=== PATIENT | female | born 1965 | race Caucasian/White ===

== ENCOUNTER 2022-09-05 10:44 | Emergency (ER) | payer BC ==
[2022-09-05] MEDS ORDERED: ONDANSETRON 4 MG/2 ML VIAL IVP STA (11:04)
[2022-09-05] MEDS ORDERED: KETOROLAC 30 MG/ML VIAL IVP STA (11:04)
[2022-09-05] MEDS ORDERED: SODIUM CHLORIDE 0.9% 1,000 ML IV STA (11:04)
[2022-09-05] MEDS ORDERED: KETOROLAC 15 MG/ML VIAL IVP STA (11:11)
[2022-09-05 11:25] LABS: BASOPHILS % (AUTO) 0.2 %; EOSINOPHILS % (AUTO) 0.1 %; HCT - HEMATOCRIT 41.5 % (37.0-47.0); HGB - HEMOGLOBIN 13.9 g/dL (12.0-16.0); LYMPHOCYTES # (AUTO) 0.2 10^3/uL (1.5-3.5); LYMPHOCYTES % (AUTO) 1.2 %; MEAN CORPUSCULAR HGB CONC 33.5 g/dL (32.0-36.0); MEAN CORPUSCULAR VOLUME 92.4 fL (81.0-99.0); MEAN PLATELET VOLUME 9.6 fL (7.9-10.8); MONOCYTES # (AUTO) 0.5 10^3/uL (0.0-1.0); MONOCYTES % (AUTO) 2.9 %; PLT - PLATELET COUNT 266 10^3/uL (130-450); RED BLOOD COUNT 4.49 10^6/uL (4.20-5.40); RED CELL DISTRIBUTION WIDTH 13.5 % (12.0-15.0); WHITE BLOOD COUNT 16.8 x10^3/uL (4.8-10.8)
[2022-09-05 11:38] LABS: ALBUMIN 4.2 g/dL (3.2-5.5); ALBUMIN/GLOBULIN RATIO 1.4 (1.0-2.2); BILIRUBIN,TOTAL 1.1 mg/dL (0.2-1.0); CALCIUM 8.7 mg/dL (8.5-10.3); CREATININE 0.7 mg/dL (0.4-1.0); POTASSIUM 2.7 mmol/L (3.5-5.0); TOTAL PROTEIN 7.3 g/dL (6.7-8.2)
[2022-09-05] MEDS ORDERED: ACETAMINOPHEN 325 MG TABLET PO STA (11:48)
[2022-09-05] MEDS ORDERED: POTASSIUM CHLORIDE 20 MEQ TABLET PO STA (12:19)
--- NOTE | 2022-09-05 12:24 | ED Physician Documentation ---
History of Present Illness - Stated complaint Stated Complaint: NAUSEA/CHILLS/VOMITING - Chief complaint Chief Complaint: Fever - History obtained from History obtained from: Patient - Additonal information Additional information: The patient comes to the emergency department chief complaint of not feeling well with fever and chills body aches over the last 24 hours. She was just seen a couple of days ago to have a cystoscopy on the back of her right shoulder I&D'd. Her primary doctor is the one who has done this and has had to do it once before couple of months ago. The patient states that the cyst was packed and she is supposed to be referred to dermatology to have the cyst removed. The patient was not placed on any antibiotics at the time and was feeling okay when the I&D took place. However, the patient began to feel unwell yesterday and ended up going to urgent care clinic, where she was placed on Keflex. She states she is taken a few doses of this already, though she has not taken her second dose for today. She states that she has noticed some increased tenderness around the area of the I&D, and her significant other feels that there is some redness around the site which has spread a bit. The patient denies any cough or shortness of breath. She has been nauseated and vomited once but has not really noted this is a prominent feature of her symptoms. The patient denies any sore throat. No dysuria. No other complaints at this time. Review of Systems Constitutional: reports: Fever, Chills, Myalgias Eyes: reports: Reviewed and negative Ears: reports: Reviewed and negative Nose: reports: Reviewed and negative Throat: reports: Reviewed and negative Cardiac: reports: Reviewed and negative Respiratory: reports: Reviewed and negative GI: reports: Reviewed and negative : reports: Reviewed and negative Skin: reports: Other Musculoskeletal: reports: Reviewed and negative Neurologic: reports: Reviewed and negative Psychiatric: reports: Reviewed and negative Endocrine: reports: Reviewed and negative Immunocompromised: reports: Reviewed and negative PD PAST MEDICAL HISTORY - Past Medical History Past Medical History: Yes Cardiovascular: Hypertension Respiratory: Asthma Endocrine/Autoimmune: None GI: None PHARMACY MESSENGER: None : None Psych: None Musculoskeletal: None Derm: None - Past Surgical History Past Surgical History: Yes Ortho: Shoulder arthroplasty - Present Medications Home Medications: Ambulatory Orders Medication Instructions Recorded Confirmed Ondansetron Odt [Zofran] 4 mg TL Q6H PRN #10 tablet 09/05/22 Sulfamethox/Trimeth 800/160 1 each PO BID #14 tablet 09/05/22 [Bactrim Ds 800/160] - Allergies Allergies/Adverse Reactions: Allergies Allergy/AdvReac Type Severity Reaction Status Date / Time lisinopril Allergy Unknown Verified 09/05/22 11:02 - Social History Does the pt smoke?: No Smoking Status: Never smoker - POLST Patient has POLST: No PD ED PE NORMAL - Vitals Vital signs reviewed: Yes - General General: Alert and oriented X 3, No acute distress, Well developed/nourished, Other (The patient appears mildly uncomfortable, but nontoxic.) - HEENT HEENT: Atraumatic, PERRL, EOMI, Moist mucous membranes - Neck Neck: Supple, no meningeal sign - Cardiac Cardiac: RRR, No murmur, Strong equal pulses - Respiratory Respiratory: No respiratory distress, Clear bilaterally - Abdomen Abdomen: Soft, Non tender, Non distended - Derm Derm: Warm and dry, Other - Extremities Extremities: No deformity - Neuro Neuro: Alert and oriented X 3 - Psych Psych: Normal mood, Normal affect PD ED PE EXPANDED - Free text exam Free text exam: 6 mm I&D site posterior right shoulder with packing in place. A single drop of seropurulent fluid is expressible from the wound. No fluctuance or any induration beyond the area immediately surrounding the incision site. 8 cm radius of erythema, mild in intensity, is noted around the incision site. Tenderness associated with erythematous area. Mild edema of same area. Results - Vitals Vitals: Oxygen O2 Source Room air - Labs Labs: Microbiology 09/05/22 11:10 Blood Culture - Preliminary Blood - Left Arm NO GROWTH AFTER 2 DAYS 09/05/22 11:10 Blood Culture - Preliminary Blood - Right Arm NO GROWTH AFTER 2 DAYS Laboratory Tests 09/05/22 09/05/22 09/05/22 11:10 11:10 11:10 WBC 16.8 H RBC 4.49 Hgb 13.9 Hct 41.5 MCV 92.4 MCH 31.0 MCHC 33.5 RDW 13.5 Plt Count 266 MPV 9.6 Neut # (Auto) 16.0 H Lymph # (Auto) 0.2 L Churchill # (Auto) 0.5 Eos # (Auto) 0.0 Baso # (Auto) 0.0 Absolute Nucleated RBC 0.00 Nucleated RBC % 0.0 Sodium 132 L Potassium 2.7 L Chloride 96 L Carbon Dioxide 23 Anion Gap 13.0 BUN 15 Creatinine 0.7 Estimated GFR (MDRD) 87 L Glucose 139 H Lactic Acid < 0.3 L Calcium 8.7 Total Bilirubin 1.1 H AST 58 H ALT 51 Alkaline Phosphatase 60 Total Protein 7.3 Albumin 4.2 Globulin 3.1 Albumin/Globulin Ratio 1.4 Lipase 25 Nasal Adenovirus (PCR) Nasal B. parapertussis DNA (PCR) Nasal Coronavir 229E PCR Nasal Coronavir HKU1 PCR Nasal Coronavir NL63 PCR Nasal Coronavir OC43 PCR Nasal Enterovir/Rhinovir PCR Nasal Influenza B PCR Nasal Influenza A PCR Nasal Parainfluen 1 PCR Nasal Parainfluen 2 PCR Nasal Parainfluen 3 PCR Nasal Parainfluen 4 PCR Nasal RSV (PCR) Nasal B.pertussis DNA PCR Nasal C.pneumoniae (PCR) Miki Human Metapneumo PCR Nasal M.pneumoniae (PCR) Nasal SARS-CoV-2 (PCR) 09/05/22 11:20 WBC RBC Hgb Hct MCV MCH MCHC RDW Plt Count MPV Neut # (Auto) Lymph # (Auto) Churchill # (Auto) Eos # (Auto) Baso # (Auto) Absolute Nucleated RBC Nucleated RBC % Sodium Potassium Chloride Carbon Dioxide Anion Gap BUN Creatinine Estimated GFR (MDRD) Glucose Lactic Acid Calcium Total Bilirubin AST ALT Alkaline Phosphatase Total Protein Albumin Globulin Albumin/Globulin Ratio Lipase Nasal Adenovirus (PCR) NOT DETECTED Nasal B. parapertussis DNA (PCR) NOT DETECTED Nasal Coronavir 229E PCR NOT DETECTED Nasal Coronavir HKU1 PCR NOT DETECTED Nasal Coronavir NL63 PCR NOT DETECTED Nasal Coronavir OC43 PCR NOT DETECTED Nasal Enterovir/Rhinovir PCR NOT DETECTED Nasal Influenza B PCR NOT DETECTED Nasal Influenza A PCR NOT DETECTED Nasal Parainfluen 1 PCR NOT DETECTED Nasal Parainfluen 2 PCR NOT DETECTED Nasal Parainfluen 3 PCR NOT DETECTED Nasal Parainfluen 4 PCR NOT DETECTED Nasal RSV (PCR) NOT DETECTED Nasal B.pertussis DNA PCR NOT DETECTED Nasal C.pneumoniae (PCR) NOT DETECTED Miki Human Metapneumo PCR NOT DETECTED Nasal M.pneumoniae (PCR) NOT DETECTED Nasal SARS-CoV-2 (PCR) NOT DETECTED PD Medical Decision Making - ED course Complexity details: reviewed results, re-evaluated patient, considered differential, d/w patient ED course: The patient had a significant fever in the emergency department, with appropriate tachycardia for the fever, but had a normal blood pressure. Overall, she appeared nontoxic. She did appear to have a cellulitis associated with her I&D site, and I reviewed her records and found that she had been placed on Keflex for this. Laboratory studies were ordered and reviewed by me, as follows: CBC showed a white blood cell count of 16.8. ER abdominal panel with mild hyponatremia 132 and moderate hypokalemia 2.7. The patient was given a dose of K-Dur for this. Blood cultures were ordered by me and are pending at this time. The patient was given a liter of 0.9 normal saline as well as IV doses of Zofran and Toradol and oral dose of Tylenol, which the patient did tolerate. I had ordered a respiratory PCR to see if perhaps patient Had a viral illness to explain what seemed to be more severe systemic illness than I would expect from the relatively mild cellulitis that the patient seemed to have. However, the PCR was negative. I discussed with the patient that she certainly could have some other viral illness on top of a mild cellulitis, but since I am not sure the patient seems to be mounting a significant systemic response, I will go ahead and give her a dose of IV vancomycin here. This was done. The patient reported feeling much better on reevaluation, and her fever had come down. I discussed with her that I will add Bactrim to the Keflex she is already taking and that she should take the entire course of both. We discussed having a very low threshold for return to the emergency department, should she begin to feel worse. I have marked the edges Of her cellulitis. Departure - Departure Disposition: 01 Home, Self Care Clinical Impression: Cellulitis Qualifiers: Site of cellulitis: trunk Site of cellulitis of trunk: back Qualified Code(s): L03.312 - Cellulitis of back [any part except buttock] Condition: Stable Instructions: ED Infec Skin Cellulitis Prescriptions: Sulfamethox/Trimeth 800/160 [Bactrim Ds 800/160] 1 each PO BID #14 tablet Ondansetron Odt [Zofran] 4 mg TL Q6H PRN #10 tablet PRN Reason: Nausea / Vomiting Comments: Your laboratory studies show a moderately elevated white blood cell count, which is not surprising, given your fever and infection. Your lactic acid, and the lab we look at to assess for potential sepsis, is normal. Additionally, your heart rate has normalized with bringing your fever down, and your blood pressure has remained normal throughout your stay in the emergency department. Your viral panel is negative. You do appear to have some cellulitis, or skin infections, surrounding the incision and drainage site. The redness is not very deep, but given the tenderness and mild swelling associated with it, it certainly needs antibiotics. Since we do not have another source of your fever and these are really the only symptoms you have, you have been treated with a dose of IV antibiotics in the emergency department today. I am also adding a second antibiotic to your home regimen and you should take both this one and the antibiotic that you are already on for complete coverage. The prescription for this and some nausea medication has been electronically transmitted to [facility] in [place] at your request. Please be sure to get plenty of fluids to drink. You may take ibuprofen 600 mg every 6 hours and Tylenol 650 mg every 4 hours, as needed for fever. Blood cultures are pending at this time, which look for bacteria in your blood. If these are positive, we will call you and let you know. You may also monitor for negative results on our patient portal by going to the hospital website at [email or web address], clicking on the "my [facility]" tab, and signing up for the patient portal. Discharge Date/Time: 09/05/22 16:19
[2022-09-05 12:25] LABS: CORONAVIRUS 229E-RESP PCR NOT DETECTED; CORONAVIRUS HKU1-RESP PCR NOT DETECTED; CORONAVIRUS NL63-RESP PCR NOT DETECTED; CORONAVIRUS OC43-RESP PCR NOT DETECTED; SARS-CoV-2 -RESP PCR PANEL NOT DETECTED
[2022-09-05 12:26] LABS: B. PARAPERTUSSIS- RESP PCR PAN NOT DETECTED; B. PERTUSSIS- RESP PCR PANEL NOT DETECTED; C. PNEUMONIAE- RESP PCR PANEL NOT DETECTED; HUMAN METAPNEUMOVIRUS NOT DETECTED; INFLUENZA A- RESP PCR PANEL NOT DETECTED; INFLUENZA B - RESP PCR PANEL NOT DETECTED; M. PNEUMONIAE- RESP PCR PANEL NOT DETECTED; PARAINFLUENZA VIRUS 1 NOT DETECTED; PARAINFLUENZA VIRUS 2 NOT DETECTED; PARAINFLUENZA VIRUS 3 NOT DETECTED; PARAINFLUENZA VIRUS 4 NOT DETECTED; RHINOVIRUS/ENTEROVIRUS NOT DETECTED; RSV- RESP PCR PANEL NOT DETECTED
[2022-09-05] MEDS ORDERED: VANCOMYCIN INJ 1.75 GM in SODIUM CHLORIDE 0.9% 500 ML IV STA (12:30)
[2022-09-05 15:10] VITALS: BP 103/72
== END 2022-09-05 16:19 | disposition home or self-care (01) ==
LOC: ED 10:44
DX: L03.312 Cellulitis of back [any part except buttock and flank] (principal); E87.6 Hypokalemia; E87.1 Hypo-osmolality and hyponatremia; Z20.822 Contact with and (suspected) exposure to COVID-19
CPT/HCPCS: 36415; 80053; 83605; 83690; 85025; 87040; 87633; 96361; 96365; 96366; 96375; 99284; A9270; J3370

== ENCOUNTER 2024-04-01 17:05 | Outpatient (CLI) | payer BC ==
--- NOTE | 2024-04-03 21:16 | XRAY Report ---
PROCEDURE: Chest 2V INDICATIONS: CHRONIC COUGH AND ASTHMA TECHNIQUE: 2 views of the chest were acquired. COMPARISON: None. FINDINGS: Surgical changes and devices: None. Lungs and pleura: No pleural effusions or pneumothorax. Lungs are clear. Mediastinum: Mediastinal contours appear normal. Heart size is normal. Bones and chest wall: No suspicious bony lesions. Overlying soft tissues appear unremarkable. IMPRESSION: No acute cardiopulmonary process. Reviewed by: Santo Whyte MD on 04/03/2024 9:15 PM PDT Approved by: Santo Whyte MD on 04/03/2024 9:15 PM PDT Station ID: [id number]
== END 2024-04-01 17:06 | disposition home or self-care (01) ==
LOC: DI 17:05
PROVIDERS: ATTEND Internal Medicine
DX: J45.909 Unspecified asthma, uncomplicated (principal); R05.3 Chronic cough